=== PATIENT | female | born 1985 | race Caucasian/White ===

== ENCOUNTER 2024-01-20 20:47 | Outpatient (CLI) | payer BC ==
[2024-01-20 21:25] LABS: Glucose,Whole Blood 113 mg/dL (70-110)
[2024-01-20 22:08] VITALS: BP 145/84; PULSE 91; RESP 20; TEMP 98
--- NOTE | 2024-01-22 08:20 | P.MSEPDOC ---
Presenting Problems - Arrival Data Date of Arrival on Unit: 01/20/24 Time of Arrival on Unit: 20:35 Mode of Transport: Ambulatory - Complaint OB-Reason for Admission/Chief Complaint: Other Comment: 38year old patient of Dr Landaverde in [place]. 37 4/7 weeks. Presents with c/o swelling in face, hands, and legs that started a couple hours after her nightly injection of insulin. Patient denies abdominal pain, bleeding, loss of fluid, no headache or vision changes. +2 reflexes, no clonus. Medical History - Information : 1 Para: 0 Term: 0 : 0 Abortions: Spontaneous or Elective: 0 Number of Living Children: 0 - Gestational Age Gestational Age by VALERI (wks/days): 37 Weeks and 4 Days - History Complications: GDM Review of Systems - Review of Systems Constitutional: No problems Breast: No problems ENT: No problems Cardiovascular: No problems Respiratory: No problems Gastrointestinal: No problems Genitourinary: No problems Musculoskeletal: No problems Neurological: No problems Skin: No problems Vital Signs - Temperature Temperature: 98.0 F Temperature Source: Oral - Pulse Right Sitting Pulse Rate: 91 Pulse Assessment Method: Pulse Oximetry - Respirations Respiratory Rate: 20 Oxygen Delivery Method: Room Air O2 Sat by Pulse Oximetry: 97 - Blood Pressure Right Arm Sitting Blood Pressure: 145/84 Blood Pressure Mean: 104 Blood Pressure Source: Automatic Cuff Medical Screen Scoring - Cervical Exam Membranes: Intact - Uterine Contractions Resting: Soft to palpation - Assessment - Baby A Baseline FHR: 125 Heart Rate - NICHD Category: Category I (Normal) NST: Reactive Physician Notification - Physician Notified Physician Notified Date: 01/20/24 Physician Notified Time: 21:18 Physician: Nisa Little New Order Received: Yes - Notification Comment Comment: Call placed to Dr Little, report of c/o swelling in face, hands and legs noticed approximately 2 hours after her injection of insulin. Patient denies bleeding or leaking of fluid, denies headache, gastric pain or visual disturbances. Lungs are clear. Patient is GDM. Orders received to check blood glucose and then patient may be discharged home. Patient needs to follow up with her Dr. Maternal Triage Index - Maternal Triage Index Presenting for scheduled procedure w/no complaint: No - Stat/Priority 1 Stat Priority 1: No - Urgent/Priority 2 Urgent Priority 2: No - Prompt/Priority 3 Prompt Priority 3: Yes Criteria Met for Priority 3: Call placed to Dr Little, report of c/o swelling in face, hands and legs noticed approximately 2 hours after her injection of insulin. Patient denies bleeding or leaking of fluid, denies headache, gastric pain or visual disturbances. Lungs are clear. Patient is GDM. Orders received to check blood glucose and then patient may be discharged home. Patient needs to follow up with her Dr. Disposition - Disposition OB Disposition: Discharge to home Discharge Date: 01/20/24 Discharge Time: 21:26 I agree with the RN Medical Screening Exam: Yes Case reviewed; plan agreed upon as documented in EMR&OBIX.: Yes Diagnosis: GESTATIONAL DIABETES IN , INSULIN CONTROLLED
== END 2024-01-20 21:26 ==
LOC: FBPOP 20:47
PROVIDERS: ATTEND Obstetrics & Gynecology
DX: O24.414 Gestational diabetes mellitus in pregnancy, insulin controlled (principal); Z3A.37 37 weeks gestation of pregnancy
CPT/HCPCS: 59025; 99213